=== PATIENT | male | born 1960 ===

== ENCOUNTER 2024-12-03 13:38 | Outpatient (AMB) | payer OTHER, SELFPAY ==
--- NOTE | 2024-12-03 13:50 | A.OFFVIS_ITS ---
Intake Visit Reasons: 3M RLS, TREMOR Allergies No Known Allergies Allergy (Verified 12/03/24 13:54) Medication List - Last Reconciled 12/03/24 by Jasmina Trevizo CNP amlodipine 5 mg PO DAILY atorvastatin 20 mg PO DAILY cetirizine 10 mg PO DAILY clonidine HCl 0.1 mg PO BID PRN fluticasone propionate 50 mcg/actuation intranasal hydrochlorothiazide 12.5 mg PO DAILY levothyroxine 50 mcg PO DAILY omeprazole 20 mg PO BID pramipexole 0.5 mg PO DAILY propranolol 40 mg PO BID risperidone 3 mg PO BEDTIME HPI Comments Details: 64-year-old man with bipolar disorder following with psychiatrist and therapist, history of substance use disorder on methadone treatment in the past, RLS, and 15-20-year history of shaking in his hands. Beginning around 06/2023, the shaking increased and began to affect his ability to hold a drink or write. His handwriting became sloppy. No trouble with mobility. His father also had shaking in his hands. He was doing okay. He was having some allergy symptoms. Tremors were okay. No functional impairment. No difficulty eating, drinking, or swallowing. He was walking with cane, no recent falls. No difficulty turning in bed or getting up from chair. RLS symptoms were better with pramipexole. [facility], LAT[facility] Medical History (Updated 12/03/24 @ 13:53 by Jasmina Trevizo CNP) Insomnia Bipolar disorder Tremor RLS (restless legs syndrome) Family History (Updated 12/03/24 @ 13:54 by Jasmina Trevizo CNP) Father Tremor Review of Systems Const Denies chills, Denies daytime sleepiness, Reports difficulty sleeping, Denies fatigue, Denies fever(s), Denies frequent falls, Denies headache(s), Denies increased appetite, Denies poor appetite, Denies snoring, Denies weakness, Denies weight gain and Denies weight loss Eyes Denies loss of vision ENT Denies vertigo, Denies dizziness, Denies headache(s) and Denies neck pain Card Denies chest pain at rest, Denies chest pain with activity, Denies syncope, Denies leg edema, Denies palpitations, Denies dyspnea and Denies dyspnea on exertion Resp Denies cough, Denies dyspnea, Denies dyspnea on exertion and Denies snoring GI Denies abdominal pain, Denies constipation, Denies heartburn, Denies diarrhea and Denies nausea Denies urinary frequency, Denies urinary incontinence and Denies urinary urgency Musc Denies abnormal gait, Denies back pain, Denies myalgias, Denies arthralgias, Denies neck pain, Denies numbness and Denies tingling Neuro Denies abnormal gait, Denies vertigo, Denies dizziness, Denies syncope, Denies frequent falls, Denies headache(s), Denies lack of coordination, Denies loss of vision, Denies memory loss, Denies numbness, Denies Other visual disturbances, Reports restless legs, Denies seizure-like activity, Denies tingling, Denies paresthesias, Reports tremor(s) and Denies weakness Psych Denies anxiety, Denies depression, Denies auditory hallucinations, Denies memory loss and Denies visual hallucinations Endo Denies fatigue and Denies palpitations Physical Exam Const Other: General Appearance:? normal, in no acute distress. Heart:? S1, S2 normal, no murmurs. Lungs:? clear anteriorly and posteriorly. Musculoskeletal:? normal. Extremities:? no edema. Psych:? alert, oriented, cognitive function intact, cooperative with exam. Neuro Other: Abnormal Neurological Findings:?Fine tremor of hands in outstretched position, low amplitude, fast frequency. Very slight cogwheeling rigidity of LUE. Walking with cane and forward leaning posture. Mental Status: alert and oriented X 3. Normal attention, orientation, memory, and affect. Cranial Nerves: Pupils are equal, round, and reactive to light. External ocular muscles are intact. Visual connors are full, no ptosis. Face is symmetrical, no facial weakness or droop. Facial sensations are normal. Tongue protrudes in midline. Palate elevates symmetrically. Shoulder shrugging is normal Motor Examination: Normal muscle tone, bulk and strength. No atrophy or fasciculations. No drift of the extended upper extremities. DTR 2+. Plantars are flexor. Sensory Exam: Normal light touch, temperature, pinprick, vibration, and joint- position sensations. Rhomberg sign is absent. Coordination: No ataxia. No titubation. Gait Exam: Walking with cane and forward leaning posture. Cerebellar Signs: [id number] is okay. Extrapyramidal System: Tremor as above. Very slight cogwheeling rigidity of LUE. Forward leaning posture with cane. Normal arm swing. No bradykinesia. No bradyphrenia. No propulsion or retropulsion. Speech: Normal. Assessment & Plan Assessment & Plan (1) Benign familial tremor: Code(s): G25.0 - Essential tremor Category: Medical Plan: Continue propranolol 40mg 1 tablet twice a day. (2) RLS (restless legs syndrome): Code(s): G25.81 - Restless legs syndrome Category: Medical Plan: Continue pramipexole 0.5mg 1 tablet in the evening. Plan Meds tried: ropinirole, gabapentin. Coding Level of Care Code Est Pt Level 4 (52061) Diagnoses Benign familial tremor G25.0 RLS (restless legs syndrome) G25.81
--- OUTSIDE RECORDS SUMMARY | 2024-12-03 17:29 | XMS_ITS | Encounter Summary ---
Author Organization [employer] Address [address] [place] [address] Care Team Providers Care Machine Plug Shaper Name Role Phone Unavailable Primary Care Provider Unavailabl e Encounter Details Date Type Department Care Team (Latest Contact Info) Description 05/20/2019 Abstract [facility] CONVERSIONS Dental, Provider, DDS Social History Tobacco Use Types Packs/Day Years Used Date Smoking Tobacco: Never Assessed Sex and Gender Information Value Date Recorded Sex Assigned at Male 01/22/2022 10:34 AM EDT Legal Sex Male 10:34 AM EDT Gender Identity Male 01/22/2022 10:34 AM EDT Sexual Orientation Straight 01/22/2022 10 :34 AM EDT documented as of this encounter Plan of Treatment Not on file documented as of this encounter Visit Diagnoses Not on filedocumented in this encounter
--- OUTSIDE RECORDS SUMMARY | 2024-12-03 17:29 | XMS_ITS | Encounter Summary ---
Author Organization [employer] Address [address] [place] [address] Care Team Providers Care Scientific Linguist Name Role Phone Unavailable Primary Care Provider Unavailabl e Encounter Details Date Type Department Care Team (Latest Contact Info) Description 02/09/2020 Abstract [facility] CONVERSIONS Dental, Provider, DDS Social History [...]
--- OUTSIDE RECORDS SUMMARY | 2024-12-03 17:29 | XMS_ITS | Encounter Summary ---
Author Organization [employer] Address [address] [place] [address] Care Team Providers Care Medical Economics Consultant Name Role Phone Unavailable Primary Care Provider Unavailabl e Encounter Details Date Type Department Care Team (Latest Contact Info) Description 04/08/2018 Abstract [facility] CONVERSIONS Dental, Provider, DDS Social History [...]
--- OUTSIDE RECORDS SUMMARY | 2024-12-03 17:29 | XMS_ITS | Clinical Summary ---
Author Organization [employer] Address [address] [place] [address] Care Team Providers Care Pre School Manager Name Role Phone Unavailable Primary Care Provider Unavailabl e Social History Tobacco Use Types Packs/Day Years Used Date Smoking Tobacco: Never Assessed Sex and Gender Information Value Date Recorded Sex Assigned at Male 01/22/2022 10:34 AM EDT Legal Sex Male 10:34 AM EDT Gender Identity Male 01/22/2022 10:34 AM EDT Sexual Orientation Straight 01/22/2022 10 :34 AM EDT Plan of Treatment Health Maintenance Due Date Last Done Comments CT Colonography 1960 Colonoscopy 1960 Colorectal Cancer Screening 1960 Depression Screening 1960 FIT DNA/Cologuard 1960 FIT 1960 FOBT 1960 Lipid Panel 1960 Sigmoidoscopy 1960 Disability Screening 1960 Alcohol/Substance Use Screening 1972 Tobacco Screening 1972 DTaP/Tdap/Td Vaccines (1 - Tdap) 1979 Pneumococcal Vaccine: 50+ Ye ars (1 of 1 - PCV) 2010 Zoster Vaccines (1 of 2) 2010 COVID-19 Vaccine (1 - 2023-2 5 season) 2024 Influenza Vaccine (#1) 2024 RSV Patients and Pa tients Aged 60 years or older (1 - 1-dose 75+ series) 2035 HIB Vaccines Aged Out No longer eligi ble based on patient's age to complete this topic HPV Vaccines Aged Out No longer eligi ble based on patient's age to complete this topic Hepatitis A Vaccines Aged Out No long er eligible based on patient's age to complete this topic Hepatitis B Vaccines Aged Out No long er eligible based on patient's age to complete this topic IPV Vaccines Aged Out No longer eligi ble based on patient's age to complete this topic Meningococcal B Vaccine Aged Out No l onger eligible based on patient's age to complete this topic Meningococcal Vaccine Aged Out No linden neela eligible based on patient's age to complete this topic RSV under 20 months Aged Out No longe r eligible based on patient's age to complete this topic Rotavirus Vaccines Aged Out No longer eligible based on patient's age to complete this topic
== END 2024-12-03 14:05 | disposition home or self-care (01) ==
LOC: HO.HSM 13:39
PROVIDERS: PCP Internal Medicine; Referring Provider Internal Medicine; Visit Provider Registered Nurse
DX: G25.0 Essential tremor (principal); G25.81 Restless legs syndrome
CPT/HCPCS: 99214

== ENCOUNTER → 2024-12-03 13:38 | Outpatient (BNVA) | payer OTHER, SELFPAY | PROVIDERS: PCP Internal Medicine; Referring Provider Internal Medicine; Visit Provider Registered Nurse | DX: G25.0 Essential tremor (principal); G25.81 Restless legs syndrome | CPT/HCPCS: 99212 ==